=== PATIENT | female | born 1940 | race Caucasian/White ===

== ENCOUNTER 2016-08-24 17:05 | Inpatient (IN) | payer MEDICARE, OTHER ==
[2016-08-24] MEDS ORDERED: VANCOMYCIN INJ 1.5 GM in SODIUM CHLORIDE 0.9% 500 ML IV STA (19:41)
[2016-08-24] MEDS ORDERED: AMPICILLIN/SULBACTAM 3 GM in SODIUM CHLORIDE 0.9% MINIBAG 100 ML IV STA ×2 (19:41→20:07)
--- NOTE | 2016-08-24 19:44 | ED Physician Documentation ---
PD HPI LOWER EXT INJURY - Stated complaint Stated Complaint: RT FOOT PAIN - Chief complaint Chief Complaint: Ext Problem - History obtained from History obtained from: Patient - History of Present Illness PD HPI LOW EXT INJURY LOCATION: Other (She has orally controlled diabetes, was seen by her physician on Thursday for spreading foot infection which despite clindamycin has developed pain from the foot up to the groin on the right but with no fevers.) Review of Systems Ten Systems: 10 systems reviewed and negative Constitutional: denies: Fever, Chills Nose: reports: Reviewed and negative GI: reports: Reviewed and negative : reports: Reviewed and negative PD PAST MEDICAL HISTORY - Past Medical History Past Medical History: Yes Cardiovascular: Hypertension, High cholesterol Endocrine/Autoimmune: Type 2 diabetes - Past Surgical History Past Surgical History: Yes - Present Medications Home Medications: Ambulatory Orders Medication Instructions Recorded Confirmed Clindamycin [Cleocin] 300 mg PO DAILY 08/24/16 08/24/16 Cyclobenzaprine [Flexeril] 5 mg PO DAILY 08/24/16 08/24/16 Hydrochlorothiazide 25 mg PO DAILY 08/24/16 08/24/16 Lisinopril 20 mg PO DAILY 08/24/16 08/24/16 Omeprazole 20 mg PO DAILY 08/24/16 08/24/16 Simvastatin 40 mg PO DAILY 08/24/16 08/24/16 metFORMIN [Glucophage] 500 mg PO DAILY 08/24/16 08/24/16 oxyCODONE [Roxicodone] 5 mg PO DAILY 08/24/16 08/24/16 - Allergies Allergies/Adverse Reactions: Allergies Allergy/AdvReac Type Severity Reaction Status Date / Time No Known Drug Allergies Allergy Verified 08/24/16 17:13 - Social History Does the pt smoke?: No Smoking Status: Never smoker Does the pt drink ETOH?: No Does the pt have substance abuse?: No - Family History Family history: reports: Non contributory PD ED PE NORMAL - Vitals Vital signs reviewed: Yes - General General: Alert and oriented X 3, No acute distress - HEENT HEENT: PERRL, EOMI - Neck Neck: Supple, no meningeal sign, No bony TTP - Cardiac Cardiac: RRR, No murmur - Respiratory Respiratory: No respiratory distress, Clear bilaterally - Abdomen Abdomen: Normal bowel sounds, Soft, Non tender - Back Back: No CVA TTP, No spinal TTP - Extremities Extremities: Other (The top of the right foot is quite tender and red with some developing but not yet fully formed vesicles and she has tenderness up the calf and the medial side of the thigh.) - Neuro Neuro: Alert and oriented X 3, Normal speech - Psych Psych: Normal mood, Normal affect Results - Vitals Vitals: Vital Signs - 24 hr 08/24/16 08/24/16 17:10 19:05 Temperature 35.8 C L Heart Rate 92 87 Respiratory 18 12 Rate Blood Pressure 133/81 H 152/67 H O2 Saturation 97 98 Oxygen O2 Source Room air PD MEDICAL DECISION MAKING - ED course ED course: 75-year-old woman with rapidly progressive cellulitis that has failed outpatient treatment. Call to the hospitalist for admission at 7:43 PM. She declined pain medications on initial evaluation. Departure - Departure Disposition: 66 [facility] DC/Xfer Clinical Impression: Cellulitis Qualifiers: Site of cellulitis: extremity Site of cellulitis of extremity: lower extremity Laterality: right Qualified Code(s): L03.115 - Cellulitis of right lower limb Diabetes Qualifiers: Diabetes mellitus type: type 2 Diabetes mellitus complication status: without complication Diabetes mellitus long-term insulin use: without equipment operator intermodal yard use Qualified Code(s): E11.9 - Type 2 diabetes mellitus without complications Condition: Stable
[2016-08-24] MEDS ORDERED: SODIUM CHLORIDE 0.9% MINIBAG 100 ML IV ONE (19:50)
[2016-08-24 19:52] LABS: BASOPHILS % (AUTO) 0.4 %; HCT - HEMATOCRIT 40.3 % (37.0-47.0); HGB - HEMOGLOBIN 13.5 g/dL (12.0-16.0); LYMPHOCYTES # (AUTO) 1.5 10^3/uL (1.5-3.5); LYMPHOCYTES % (AUTO) 21.6 %; MEAN CORPUSCULAR HEMOGLOBIN 28.3 pg (27.0-31.0); MEAN CORPUSCULAR HGB CONC 33.5 g/dL (32.0-36.0); MEAN CORPUSCULAR VOLUME 84.5 fL (81.0-99.0); MEAN PLATELET VOLUME 9.2 fL (7.9-10.8); MONOCYTES # (AUTO) 0.8 10^3/uL (0.0-1.0); MONOCYTES % (AUTO) 11.4 %; NEUTROPHILS # (AUTO) 4.6 10^3/uL (1.5-6.6); NEUTROPHILS % (AUTO) 66.6 %; RED BLOOD COUNT 4.76 10^6/uL (4.20-5.40); RED CELL DISTRIBUTION WIDTH 14.2 % (12.0-15.0); UNCORRECTED WHITE BLOOD COUNT 6.9 x10^3/uL; WHITE BLOOD COUNT 6.9 x10^3/uL (4.8-10.8)
[2016-08-24] MEDS ORDERED: ONDANSETRON 4 MG/2 ML VIAL IVP PRN (20:00)
[2016-08-24] MEDS ORDERED: ONDANSETRON ODT 4 MG TABLET TL PRN (20:00)
[2016-08-24] MEDS ORDERED: ACETAMINOPHEN 325 MG TABLET PO PRN (20:00)
[2016-08-24] MEDS ORDERED: HYDROcod/ACETAM 5/325 MG TABLET PO PRN (20:00)
[2016-08-24] MEDS ORDERED: PANTOPRAZOLE 40 MG TABLET PO STA (20:04)
[2016-08-24 20:07] LABS: BILIRUBIN,TOTAL 0.7 mg/dL (0.2-1.0); CALCIUM 9.6 mg/dL (8.5-10.3); CREATININE 0.9 mg/dL (0.4-1.0); POTASSIUM 3.8 mmol/L (3.5-5.0)
[2016-08-24] MEDS ORDERED: VANCOMYCIN 1 GM VIAL ONE (20:12)
[2016-08-24 20:52] LABS: HEMOGLOBIN A1C 0.62 g/dL
[2016-08-24] MEDS: INSULIN ASPART 300 UNIT/3 ML PEN SUBQ SCH (21:47)
--- NOTE | 2016-08-24 21:47 | HISTORY & PHYSICAL EXAMINATION ---
Chief Complaint - Chief Complaint Chief Complaint: Right foot pain History of Present Illness - Admitted From Admitted From:: Emergency Department - History Obtained From Records Reviewed: ED History obtained from: Patient and Sister - History of Present Illness HPI Comment/Other: History and Physical completed at 2044 from the Emergency Department. 75 year-old white female with PMH diabetes and hypertension who woke up Thursday morning (08/22/16) with blistering, redness, swelling, and pain to her right foot. She went to her PCP that afternoon and was started on oral Clindamycin. She reports improvement in the blistering and swelling to her dorsal foot yet noticed a red streak extending proximally along the medial calf that started today. There is pain and tenderness up to her medial groin. She denies fevers, chills, or injury. She does walk around barefoot frequently and participates in water physical therapy 4 times a week. In the Emergency Department she is administered 3 gm Unasyn and 2 gm Vancomycin intravenously. Review of Systems - Constitutional Constitutional: reports: Poor appetite. denies: Fatigue, Fever, Chills, Weakness, Night sweats - Eyes Eyes: denies: Blurred vision, Spots in vision, Vision loss - Ears, Nose & Throat Ears, Nose & Throat: reports: Dentures (upper and lower, with patient.). denies : Hearing loss, Sore throat, Mouth lesions - Cardiovascular Cariovascular: denies: Irregular heart rate, Palpitations, Chest pain, Lightheadedness - Respiratory Respiratory: denies: Cough, Wheezing - Gastrointestinal Gastrointestinal: reports: Diarrhea (Loose stools Thursday.), Bile emesis ( Emesis x 1 on Thursday.). denies: Abdominal pain, Abdominal distention, Black stools, Bloody stools - Genitourinary Genitourinary: reports: Incontinence (Dribbing, wears incontinence pad at night. ). denies: Dysuria, Frequency - Musculoskeletal Musculoskeletal: reports: Back pain (Chronic back pain x 10 years.). denies: Joint pain - Integumentary Integumentary: denies: Rash - Neurological Neurological: denies: General weakness, Headache, Dizziness, Memory problems - Psychiatric Psychiatric: reports: Depression (Occasional depression that lasts 1 hour, resolves.). denies: Anxiety - Endocrine Endocrine: denies: Polyuria, Polydypsia - Hematologic/Lymphatic Hematologic/Lymphatic: denies: Bruising, Blood clots - All Other Systems All Other Systems: reports: Reviewed and negative History - Past Medical History Cardiovascular: reports: Hypertension, High cholesterol Respiratory: reports: None Neuro: reports: None Endocrine/Autoimmune: reports: Type 2 diabetes (No insulin therapy.) GI: reports: GERD RADIOLOGY TRANSCRIPTIONIST: reports: Other (, menopause age 51) : reports: Incontinence (dribbling.) HEENT: reports: None Psych: reports: None Musculoskeletal: reports: Chronic back pain (Several bulging discs and spinal stenosis.) Derm: reports: None MRSA Hx?: No - Past Surgical History General: reports: Bowel surgery ("possible bowel obstruction") HEENT: reports: Other ("some sort of throat surgery. My food wouldn't go down.") - Family & Social History Family History: Mother: (age 78; polio), CAD, OR (Grandmother, PE), Sister: Alive and Well, , Diabetes, Type 2, Brother: Diabetes, Type 2, Other family: OR Family History Comment/Other: Patient does not know her father or his medical history. Living arrangement: At home Living Situation: Alone Social History Notes: Patient retired after 30 years of working for [employer]) in [place]. She has lived alone in her house in [place] for the past 15 years since her . She was 4 children and 10 grandchildren who live in [facility]. Her sister, Candi Zarate (at the bedside) lives in [place]. She uses a walker to assist with mobility and reports being unable to clean her house although she has friends who help. She participates in water physical therapy 4 times a week [facility] [place]. She enjoys playing cards and going to the [employer] via the [employer]. - Substance History Use: Uses substance without health or social issues: Alcohol (One drink/month.) Abuse: Recurrent use of substance despite neg consequences: NONE Dependence: Experiences withdrawal or developed tolerances: NONE - POLST Patient has POLST: No Meds/Allgy - Home Medications Home Medications: Ambulatory Orders Medication Instructions Recorded Confirmed Clindamycin [Cleocin] 300 mg PO Q8H 08/24/16 08/25/16 Cyclobenzaprine [Flexeril] 5 mg PO TID PRN 08/24/16 08/25/16 Hydrochlorothiazide 25 mg PO DAILY 08/24/16 08/24/16 Lisinopril 20 mg PO DAILY 08/24/16 08/24/16 Omeprazole 20 mg PO DAILY 08/24/16 08/24/16 Simvastatin 40 mg PO DAILY 08/24/16 08/24/16 metFORMIN [Glucophage] 500 mg PO BID 08/24/16 08/25/16 oxyCODONE [Roxicodone] 5 - 10 mg PO Q4HR PRN 08/24/16 08/25/16 - Allergies Allergies/Adverse Reactions: Allergies Allergy/AdvReac Type Severity Reaction Status Date / Time No Known Drug Allergies Allergy Verified 08/24/16 17:13 Exam - Vital Signs Reviewed Vital Signs: Yes Vital Signs: Vital Signs x48h Temp Pulse Resp BP Pulse Ox 08/24/16 21:29 36.7 C 83 20 142/76 H 97 - Physical Exam General Appearance: positive: No acute distress (Resting on stretcher in ED. She has a difficult time maneuvering/sitting up on the stretcher due to her chronic back pain.) Eyes Bilateral: positive: Normal inspection, PERRL, EOMI ENT: positive: ENT inspection nml, Pharynx nml, No signs of dehydration Neck: positive: Nml inspection, No JVD, Trachea midline Respiratory: positive: Chest non-tender, No respiratory distress, Breath sounds nml Cardiovascular: positive: Regular rate & rhythm, No murmur, No gallop Peripheral Pulses: positive: 2+ (Bilateral Radial and left pedal/tibial pulses.) , 1+ (Right pedal and tibial pulses.) Abdomen: positive: Non-tender, Nml bowel sounds, No distention Back: positive: Nml inspection Skin: positive: Warm, Dry, Other (Redness and non-pitting edema to dorsal right foot- multiple bullae (patient reports are improving). 1+ pitting edema to pretibial region. Region is tender to palpation. Red streak extending along the left medial calf to the knee. No redness appreciated above the knee yet patient reports tenderness along the medial thigh towards the groin. 1+ pedal and tibial pulse on right leg. Area outlined for close monitoring.) Neurologic/Psychiatric: positive: Oriented x3, CN's nml (2-12), Motor nml, Sensation nml, Mood/affect nml Conclusion/Plan - Problem List (1) Cellulitis Conclusion/Plan: Patient with cellulitis to right lower extremity (foot) with red streak extending along medial calf to her knee. Patient has failed outpatient Clindamycin therapy that was initiated August 22. There are no signs of systemic infection in the ED: aefebrile, vital signs stable and lactic acid is 1.3. Blood cultures were drawn prior to initiation of antibiotic therapy. Redness is outlined upon arriving on medical unit for continued monitoring purposes. * Empiric antibiotic treatment for diabetic related cellulitis: * Vancomycin 2,000 mg every 12 hours intravenously: pharmacy to manage and dose. * Unasyn 3 gm every 6 hours intravenously. * Monitor for blood culture growth. * Outline redness and monitor progression daily. * Keep right lower extremity elevated while in bed. * Vital signs every 8 hours. Qualifiers: Site of cellulitis: extremity Site of cellulitis of extremity: lower extremity Laterality: right Qualified Code(s): L03.115 - Cellulitis of right lower limb (2) Diabetes Conclusion/Plan: Patient monitors her diet and takes 500 mg Metformin twice daily to manage her diabetes. She does not know her normal blood sugar, last hgb A1c or last eye exam. * Hold Metformin while inpatient. * ACHS blood sugar monitoring. * ACHS 1-5 unit sliding scale Novolog insulin. * Hgb A1c: 5.9 * Level III carbohydrate controlled diet. * Contact PCP regarding appointment with opthamologist and workers compensation paralegal. Qualifiers: Diabetes mellitus type: type 2 Diabetes mellitus complication status: with skin complications Diabetes mellitus complication detail: with other skin complication Diabetes mellitus nursing home insulin use: without nursing home use Qualified Code(s): E11.628 - Type 2 diabetes mellitus with other skin complications (3) Hypertension Conclusion/Plan: Hypertension not at goal therapy upon admission. * Continue home medication regimen. * Vital signs every 8 hours. Qualifiers: Hypertension type: unspecified secondary hypertension Qualified Code(s): I15.9 - Secondary hypertension, unspecified; I15 - Secondary hypertension (4) Back pain Conclusion/Plan: Patient reports chronic lumbar back pain from spinal stenosis and 4-5 bulging discs. She takes 5 mg oxycodone 1-2 times daily and 5 mg cyclobenzaprine once daily as needed for the pain. She reports no changes to the pain. * Continue home medication regimen. Qualifiers: Back pain location: low back pain Chronicity: chronic Back pain laterality: unspecified Sciatica presence: without sciatica Qualified Code(s ): M54.5 - Low back pain; G89.29 - Other chronic pain - Lab Results Fish Bones: 08/24/16 19:30 08/24/16 19:30 Issues/Core Measures - Anticipated LOS Anticipated Stay Length: 2 or more midnights - DVT/VTE - Prophylaxis VTE/DVT Device ordered at admit?: Yes
[2016-08-24] MEDS ORDERED: PANTOPRAZOLE 40 MG TABLET ONE (21:53)
[2016-08-24] MEDS: SODIUM CHLORIDE FLUSH 0.9% 10 ML SYRINGE IVP SCH (21:54)
[2016-08-24] MEDS: SODIUM CHLORIDE FLUSH 0.9% 10 ML SYRINGE IVP PRN (22:47)
[2016-08-25] MEDS: AMPICILLIN/SULBACTAM 3 GM in SODIUM CHLORIDE 0.9% MINIBAG 100 ML IV SCH ×4 (01:42→20:49)
[2016-08-25] MEDS: SODIUM CHLORIDE FLUSH 0.9% 10 ML SYRINGE IVP SCH ×3 (05:23→20:50)
[2016-08-25] MEDS: ATORVASTATIN 10 MG TABLET PO SCH (08:29)
[2016-08-25] MEDS: ENOXAPARIN 40 MG/0.4 ML SYRINGE SUBQ SCH (08:30)
[2016-08-25] MEDS: LISINOPRIL 20 MG TABLET PO SCH (08:30)
[2016-08-25] MEDS: CYCLOBENZAPRINE 10 MG TABLET PO SCH (08:30)
[2016-08-25] MEDS: hydroCHLOROthiazide 25 MG TABLET PO SCH (08:30)
[2016-08-25] MEDS: POLYETHYLENE GLYCOL 3350 17 GM PACKET PO SCH (08:31)
[2016-08-25] MEDS: oxyCODONE 5 MG TABLET PO PRN ×3 (08:31→21:37)
[2016-08-25] MEDS: SODIUM CHLORIDE FLUSH 0.9% 10 ML SYRINGE IVP PRN (08:32)
[2016-08-25] MEDS: INSULIN ASPART 300 UNIT/3 ML PEN SUBQ SCH ×4 (08:33→20:49)
[2016-08-25] MEDS ORDERED: NON FORMULARY MED (Simvastatin [Simvastatin] 40 MG) PO SCH (09:00)
[2016-08-25] MEDS: PANTOPRAZOLE 40 MG TABLET PO SCH (14:12)
[2016-08-25] MEDS ORDERED: SODIUM CHLORIDE 0.9% 500 ML IV ONE (18:15)
[2016-08-25] MEDS ORDERED: VANCOMYCIN 1 GM VIAL ONE (18:15)
[2016-08-25] MEDS ORDERED: VANCOMYCIN 500 MG VIAL ONE (18:16)
[2016-08-25] MEDS: VANCOMYCIN INJ 1 GM, VANCOMYCIN INJ 500 MG in SODIUM CHLORIDE 0.9% 500 ML IV SCH (18:26)
--- NOTE | 2016-08-25 19:01 | PROVIDER PROGRESS NOTE ---
Assessment/Plan - Problem List (1) Cellulitis Qualifiers: Site of cellulitis: extremity Site of cellulitis of extremity: lower extremity Laterality: right Qualified Code(s): L03.115 - Cellulitis of right lower limb Assessment/Plan: Patient with cellulitis to right lower extremity (foot) with red streak extending along medial calf to her knee. Patient has failed outpatient Clindamycin therapy that was initiated August 22. There are no signs of systemic infection in the ED: aefebrile, vital signs stable and lactic acid is 1.3. Blood cultures were drawn prior to initiation of antibiotic therapy. Redness is outlined upon arriving on medical unit for continued monitoring purposes. * Empiric antibiotic treatment for diabetic related cellulitis: * Vancomycin 2,000 mg every 12 hours intravenously: pharmacy to manage and dose. * Unasyn 3 gm every 6 hours intravenously. * Monitor for blood culture growth. * Outline redness and monitor progression daily. * Keep right lower extremity elevated while in bed. * Vital signs every 8 hours * Patients foot looks unchanged today, no leukocytosis, no fever, will likely need a few more days of IV abx Qualifiers: Site of cellulitis: extremity Site of cellulitis of extremity: lower extremity Laterality: right Qualified Code(s): L03.115 - Cellulitis of right lower limb (2) Diabetes Conclusion/Plan: Patient monitors her diet and takes 500 mg Metformin twice daily to manage her diabetes. She does not know her normal blood sugar, last hgb A1c or last eye exam. * Hold Metformin while inpatient. * ACHS blood sugar monitoring. * ACHS 1-5 unit sliding scale Novolog insulin. * Hgb A1c: 5.9 * Level III carbohydrate controlled diet. * Contact PCP regarding appointment with opthamologist and quality control supervisor. * Stable Qualifiers: Diabetes mellitus type: type 2 Diabetes mellitus complication status: with skin complications Diabetes mellitus complication detail: with other skin complication Diabetes mellitus prison insulin use: without long term care social worker use Qualified Code(s): E11.628 - Type 2 diabetes mellitus with other skin complications (3) Hypertension Conclusion/Plan: Hypertension not at goal therapy upon admission. * Continue home medication regimen. * Vital signs every 8 hours. * Stable Qualifiers: Hypertension type: unspecified secondary hypertension Qualified Code(s): I15.9 - Secondary hypertension, unspecified; I15 - Secondary hypertension (4) Back pain Conclusion/Plan: Patient reports chronic lumbar back pain from spinal stenosis and 4-5 bulging discs. She takes 5 mg oxycodone 1-2 times daily and 5 mg cyclobenzaprine once daily as needed for the pain. She reports no changes to the pain. * Continue home medication regimen. * Stable Qualifiers: Back pain location: low back pain Chronicity: chronic Back pain laterality: unspecified Sciatica presence: without sciatica Qualified Code(s ): M54.5 - Low back pain; G89.29 - Other chronic pain - Current Meds Current Meds: Current Medications Generic Name Dose Route Start Last Admin Trade Name Freq PRN Reason Stop Dose Admin Atorvastatin Calcium 20 mg 08/25/16 09:00 08/25/16 08:29 Lipitor PO 20 mg DAILY ANNAMARIA Administration Cyclobenzaprine HCl 5 mg 08/25/16 09:00 08/25/16 08:30 Flexeril PO 5 mg DAILY ANNAMARIA Administration Enoxaparin Sodium 40 mg 08/25/16 09:00 08/25/16 08:30 Lovenox SUBQ 40 mg DAILY ANNAMARIA Administration Hydrochlorothiazide 25 mg 08/25/16 09:00 08/25/16 08:30 Hydrodiuril PO 25 mg DAILY ANNAMARIA Administration Vancomycin HCl 1 gm/ 500 mls @ 250 mls/hr 08/25/16 19:00 08/25/16 18:26 Vancomycin HCl 500 mg/ Sodium IV 250 mls/hr Chloride Q24H ANNAMARIA Administration Ampicillin Sodium/Sulbactam 100 mls @ 200 mls/hr 08/25/16 02:00 08/25/16 13:30 Sodium 3 gm/ Sodium Chloride IV 200 mls/hr Q6H ANNAMARIA Administration Insulin Aspart 1 - 5 unit 08/24/16 21:00 08/25/16 18:27 Novolog SUBQ Not Given 0800,1200,1700,2100 ANNAMARIA Protocol Lisinopril 20 mg 08/25/16 09:00 08/25/16 08:30 Zestril PO 20 mg DAILY ANNAMARIA Administration Oxycodone HCl 5 mg 08/24/16 21:00 08/25/16 14:25 Roxicodone PO 5 mg Q4HR PRN Administration PAIN Pantoprazole Sodium 40 mg 08/25/16 14:00 08/25/16 14:12 Protonix PO 40 mg QDAC ANNAMARIA Administration Polyethylene Glycol 17 gm 08/25/16 09:00 08/25/16 08:31 Miralax PO 17 gm DAILY ANNAMARIA Administration Sodium Chloride 10 ml 08/24/16 20:00 08/25/16 08:32 Normal Saline Flush 0.9% IVP 10 ml PRN PRN Administration NEEDED PER PROVIDER ORDERS Sodium Chloride 10 ml 08/24/16 22:00 08/25/16 13:30 Normal Saline Flush 0.9% IVP 10 ml Q8HR ANNAMARIA Administration - Lab Result Lab results reviewed: Yes Fish Bone Diagrams: 08/24/16 19:30 08/24/16 19:30 - Diagnostic Imaging Results Diagnostic Imaging Results: Final report reviewed - Additional Planning Condition/Complexity: Stable My Orders: My Active Orders 08/25/16 14:00 Pantoprazole [Protonix] 40 mg PO QDAC Plan Discussed with:: Patient Time Spent: 31-60 minutes Subjective - Subjective Patient Reports: Other (Continues to have swelling and erythema of the foot. She states she had no fevers or chills overnight. She states pain is controlled. She is concerned about getting her GERD medication.) Nursing Reports: No Complaints Objective Vital Signs: Vital Signs - 24 hr 08/24/16 08/25/16 08/25/16 21:29 00:16 10:18 Temperature 36.7 C 36.9 C 36.7 C Heart Rate [ 83 82 86 Brachial] Respiratory 20 20 20 Rate Blood Pressure 142/76 H [Left Brachial artery] Blood Pressure 133/78 H 123/85 H [Right Brachial artery] O2 Saturation 97 93 92 08/25/16 16:27 Temperature 36.8 C Heart Rate [ 75 Brachial] Respiratory 20 Rate Blood Pressure [Left Brachial artery] Blood Pressure 109/67 [Right Brachial artery] O2 Saturation 94 Oxygen O2 Source Room air I&O (Last 24 Hrs): Intake and Output Totals x24h 08/23/16 08/24/16 08/25/16 23:59 23:59 23:59 Intake Total 536 1615 Output Total 240 Balance 536 1375 General: Alert, Oriented x3, Cooperative, No acute distress, Other (Obese) HEENT: Atraumatic, PERRLA Neck: Supple, No JVD, No thyromegaly, +2 carotid pulse wo bruit, No LAD Lymphatic: no adenopathy Neuro: Alert, Non Focal, CN 2-12 Grossly Intact, Oriented Times 3 Cardiovascular: Regular rate, Normal S1, Normal S2, No murmurs Respiratory: Chest non-tender, No respiratory distress, Breath sounds nml Abdomen: Normal bowel sounds, Soft, No tenderness, No hepatospenomegaly Extremities: No clubbing, No cyanosis, Normal pulses Skin: No rashes, No breakdown Comments/Notes: Redness and non-pitting edema to dorsal right foot- multiple bullae (patient reports are improving). 1+ pitting edema to pretibial region. Region is tender to palpation. Red streak extending along the left medial calf to the knee. No redness appreciated above the knee yet patient reports tenderness along the medial thigh towards the groin. 1+ pedal and tibial pulse on right leg. Area outlined for close monitoring. - Results Results: Laboratory Results WBC 6.9 x10^3/uL (4.8-10.8) 08/24/16 19:30 RBC 4.76 10^6/uL (4.20-5.40) 08/24/16 19:30 Hgb 13.5 g/dL (12.0-16.0) 08/24/16 19:30 Hct 40.3 % (37.0-47.0) 08/24/16 19:30 MCV 84.5 fL (81.0-99.0) 08/24/16 19:30 MCH 28.3 pg (27.0-31.0) 08/24/16 19:30 MCHC 33.5 g/dL (32.0-36.0) 08/24/16 19:30 RDW 14.2 % (12.0-15.0) 08/24/16 19:30 Plt Count 192 10^3/uL (130-450) 08/24/16 19:30 MPV 9.2 fL (7.9-10.8) 08/24/16 19:30 Neut # 4.6 10^3/uL (1.5-6.6) 08/24/16 19:30 Lymph # 1.5 10^3/uL (1.5-3.5) 08/24/16 19:30 [place] # 0.8 10^3/uL (0.0-1.0) 08/24/16 19:30 Eos # 0.0 10^3/uL (0.0-0.7) 08/24/16 19:30 Baso # 0.0 10^3/uL (0.0-0.1) 08/24/16 19:30 Absolute Nucleated RBC 0.00 x10^3/uL 08/24/16 19:30 Nucleated RBCs 0.0 /100WBC 08/24/16 19:30 ESR 54 mm/Hr (0-30) H 08/24/16 19:30 Sodium 135 mmol/L (135-145) 08/24/16 19:30 Potassium 3.8 mmol/L (3.5-5.0) 08/24/16 19:30 Chloride 97 mmol/L (101-111) L 08/24/16 19:30 Carbon Dioxide 25 mmol/L (21-32) 08/24/16 19:30 Anion Gap 13.0 (6-13) 08/24/16 19:30 BUN 28 mg/dL (6-20) H 08/24/16 19:30 Creatinine 0.9 mg/dL (0.4-1.0) 08/24/16 19:30 Estimated GFR (MDRD) 61 (>89) L 08/24/16 19:30 Glucose 117 mg/dL (70-100) H 08/24/16 19:30 POC Whole Bld Glucose 107 mg/dL (70 - 100) H 08/25/16 16:45 Glycated Hemoglobin 5.9 % (4.6-6.2) 08/24/16 19:30 Estim Average Glucose 123 (70-100) H 08/24/16 19:30 Lactic Acid 1.3 mmol/L (0.5-2.2) 08/24/16 19:30 Calcium 9.6 mg/dL (8.5-10.3) 08/24/16 19:30 Total Bilirubin 0.7 mg/dL (0.2-1.0) 08/24/16 19:30 AST 57 IU/L (10-42) H 08/24/16 19:30 ALT 39 IU/L (10-60) 08/24/16 19:30 Alkaline Phosphatase 51 IU/L (42-121) 08/24/16 19:30 C-Reactive Protein 7.0 mg/dL (0-1.0) H 08/24/16 19:30 Total Protein 8.0 g/dL (6.7-8.2) 08/24/16 19:30 Albumin 4.0 g/dL (3.2-5.5) 08/24/16 19:30 Globulin 4.0 g/dL (2.1-4.2) 08/24/16 19:30 Albumin/Globulin Ratio 1.0 (1.0-2.2) 08/24/16 19:30 Lipase 31 U/L (22-51) 08/24/16 19:30
[2016-08-26] MEDS: SODIUM CHLORIDE FLUSH 0.9% 10 ML SYRINGE IVP PRN ×2 (01:52→21:31)
[2016-08-26] MEDS: AMPICILLIN/SULBACTAM 3 GM in SODIUM CHLORIDE 0.9% MINIBAG 100 ML IV SCH ×4 (01:52→21:30)
[2016-08-26] MEDS: SODIUM CHLORIDE FLUSH 0.9% 10 ML SYRINGE IVP SCH ×3 (02:56→19:01)
[2016-08-26] MEDS: PANTOPRAZOLE 40 MG TABLET PO SCH (05:57)
[2016-08-26] MEDS: INSULIN ASPART 300 UNIT/3 ML PEN SUBQ SCH ×4 (08:11→21:40)
[2016-08-26] MEDS: CYCLOBENZAPRINE 10 MG TABLET PO SCH (08:12)
[2016-08-26] MEDS: ENOXAPARIN 40 MG/0.4 ML SYRINGE SUBQ SCH (08:12)
[2016-08-26] MEDS: ATORVASTATIN 10 MG TABLET PO SCH (08:12)
[2016-08-26] MEDS: LISINOPRIL 20 MG TABLET PO SCH (08:13)
[2016-08-26] MEDS: POLYETHYLENE GLYCOL 3350 17 GM PACKET PO SCH (08:13)
[2016-08-26] MEDS: SENNA 8.6 MG TABLET PO SCH (08:13)
[2016-08-26] MEDS: hydroCHLOROthiazide 25 MG TABLET PO SCH (08:13)
[2016-08-26] MEDS: DOCUSATE SODIUM 250 MG CAPSULE PO SCH (08:14)
--- NOTE | 2016-08-26 18:03 | PROVIDER PROGRESS NOTE ---
Assessment/Plan - Problem List (1) Cellulitis Qualifiers: Site of cellulitis: extremity Site of cellulitis of extremity: lower extremity Laterality: right Qualified Code(s): L03.115 - Cellulitis of right lower limb (2) Diabetes Qualifiers: Diabetes mellitus type: type 2 Diabetes mellitus complication status: with skin complications Diabetes mellitus complication detail: with other skin complication Diabetes mellitus fdc insulin use: without termite treater use Qualified Code(s): E11.628 - Type 2 diabetes mellitus with other skin complications - Current Meds Current Meds: Current Medications Generic Name Dose Route Start Last Admin Trade Name Freq PRN Reason Stop Dose Admin Atorvastatin Calcium 20 mg 08/25/16 09:00 08/26/16 08:12 Lipitor PO 20 mg DAILY ANNAMARIA Administration Cyclobenzaprine HCl 5 mg 08/25/16 09:00 08/26/16 08:12 Flexeril PO 5 mg DAILY ANNAMARIA Administration Docusate Sodium 250 - 500 mg 08/26/16 09:00 08/26/16 08:14 Colace 250mg Capsule PO Not Given DAILY ANNAMARIA Enoxaparin Sodium 40 mg 08/25/16 09:00 08/26/16 08:12 Lovenox SUBQ 40 mg DAILY ANNAMARIA Administration Hydrochlorothiazide 25 mg 08/25/16 09:00 08/26/16 08:13 Hydrodiuril PO 25 mg DAILY ANNAMARIA Administration Vancomycin HCl 1 gm/ 500 mls @ 250 mls/hr 08/25/16 19:00 08/25/16 18:26 Vancomycin HCl 500 mg/ Sodium IV 250 mls/hr Chloride Q24H ANNAMARIA Administration Ampicillin Sodium/Sulbactam 100 mls @ 200 mls/hr 08/25/16 02:00 08/26/16 13:09 Sodium 3 gm/ Sodium Chloride IV 200 mls/hr Q6H ANNAMARIA Administration Insulin Aspart 1 - 5 unit 08/24/16 21:00 08/26/16 17:07 Novolog SUBQ Not Given 0800,1200,1700,2100 [facility] Protocol Lisinopril 20 mg 08/25/16 09:00 08/26/16 08:13 Zestril PO 20 mg DAILY ANNAMARIA Administration Oxycodone HCl 5 mg 08/24/16 21:00 08/25/16 21:37 Roxicodone PO 5 mg Q4HR PRN Administration PAIN Pantoprazole Sodium 40 mg 08/25/16 14:00 08/26/16 05:57 Protonix PO 40 mg QDAC ANNAMARIA Administration Polyethylene Glycol 17 gm 08/25/16 09:00 08/26/16 08:13 Miralax PO Not Given DAILY ANNAMARIA Senna 8.6 - 17.2 mg 08/26/16 09:00 08/26/16 08:13 Senokot PO Not Given DAILY ANNAMARIA Sodium Chloride 10 ml 08/24/16 20:00 08/26/16 01:52 Normal Saline Flush 0.9% IVP 10 ml PRN PRN Administration NEEDED PER PROVIDER ORDERS Sodium Chloride 10 ml 08/24/16 22:00 08/26/16 13:10 Normal Saline Flush 0.9% IVP 10 ml Q8HR ANNAMARIA Administration - Lab Result Fish Bone Diagrams: 08/24/16 19:30 08/24/16 19:30 Objective Vital Signs: Vital Signs - 24 hr 08/26/16 08/26/16 00:45 12:25 Temperature 36.6 C 36.6 C Heart Rate [ 72 76 Brachial] Respiratory 16 16 Rate Blood Pressure 114/68 [Left Brachial artery] Blood Pressure 116/74 [Right Brachial artery] O2 Saturation 97 94 Oxygen O2 Source Room air I&O (Last 24 Hrs): Intake and Output Totals x24h 08/24/16 08/25/16 08/26/16 23:59 23:59 23:59 Intake Total 536 2287 1157 Output Total 240 Balance 536 2047 1157 - Results Results: Laboratory Results WBC 6.9 x10^3/uL (4.8-10.8) 08/24/16 19:30 RBC 4.76 10^6/uL (4.20-5.40) 08/24/16 19:30 Hgb 13.5 g/dL (12.0-16.0) 08/24/16 19:30 Hct 40.3 % (37.0-47.0) 08/24/16 19:30 MCV 84.5 fL (81.0-99.0) 08/24/16 19:30 MCH 28.3 pg (27.0-31.0) 08/24/16 19:30 MCHC 33.5 g/dL (32.0-36.0) 08/24/16 19:30 RDW 14.2 % (12.0-15.0) 08/24/16 19:30 Plt Count 192 10^3/uL (130-450) 08/24/16 19:30 MPV 9.2 fL (7.9-10.8) 08/24/16 19:30 Neut # 4.6 10^3/uL (1.5-6.6) 08/24/16 19:30 Lymph # 1.5 10^3/uL (1.5-3.5) 08/24/16 19:30 [place] # 0.8 10^3/uL (0.0-1.0) 08/24/16 19:30 Eos # 0.0 10^3/uL (0.0-0.7) 08/24/16 19:30 Baso # 0.0 10^3/uL (0.0-0.1) 08/24/16 19:30 Absolute Nucleated RBC 0.00 x10^3/uL 08/24/16 19:30 Nucleated RBCs 0.0 /100WBC 08/24/16 19:30 ESR 54 mm/Hr (0-30) H 08/24/16 19:30 Sodium 135 mmol/L (135-145) 08/24/16 19:30 Potassium 3.8 mmol/L (3.5-5.0) 08/24/16 19:30 Chloride 97 mmol/L (101-111) L 08/24/16 19:30 Carbon Dioxide 25 mmol/L (21-32) 08/24/16 19:30 Anion Gap 13.0 (6-13) 08/24/16 19:30 BUN 28 mg/dL (6-20) H 08/24/16 19:30 Creatinine 0.9 mg/dL (0.4-1.0) 08/24/16 19:30 Estimated GFR (MDRD) 61 (>89) L 08/24/16 19:30 Glucose 117 mg/dL (70-100) H 08/24/16 19:30 POC Whole Bld Glucose 113 mg/dL (70 - 100) H 08/26/16 10:53 Glycated Hemoglobin 5.9 % (4.6-6.2) 08/24/16 19:30 Estim Average Glucose 123 (70-100) H 08/24/16 19:30 Lactic Acid 1.3 mmol/L (0.5-2.2) 08/24/16 19:30 Calcium 9.6 mg/dL (8.5-10.3) 08/24/16 19:30 Total Bilirubin 0.7 mg/dL (0.2-1.0) 08/24/16 19:30 AST 57 IU/L (10-42) H 08/24/16 19:30 ALT 39 IU/L (10-60) 08/24/16 19:30 Alkaline Phosphatase 51 IU/L (42-121) 08/24/16 19:30 C-Reactive Protein 7.0 mg/dL (0-1.0) H 08/24/16 19:30 Total Protein 8.0 g/dL (6.7-8.2) 08/24/16 19:30 Albumin 4.0 g/dL (3.2-5.5) 08/24/16 19:30 Globulin 4.0 g/dL (2.1-4.2) 08/24/16 19:30 Albumin/Globulin Ratio 1.0 (1.0-2.2) 08/24/16 19:30 Lipase 31 U/L (22-51) 08/24/16 19:30
[2016-08-26] MEDS: VANCOMYCIN INJ 1 GM, VANCOMYCIN INJ 500 MG in SODIUM CHLORIDE 0.9% 500 ML IV SCH (19:00)
[2016-08-26] MEDS: oxyCODONE 5 MG TABLET PO PRN (21:41)
[2016-08-27] MEDS: AMPICILLIN/SULBACTAM 3 GM in SODIUM CHLORIDE 0.9% MINIBAG 100 ML IV SCH ×2 (02:01→10:12)
[2016-08-27] MEDS: SODIUM CHLORIDE FLUSH 0.9% 10 ML SYRINGE IVP SCH (02:01)
--- NOTE | 2016-08-27 07:07 | Discharge Plan ---
Discharge Plan Disposition: Home, Self Care Condition: Good Prescriptions: Amox/Clav 875/125 [Augmentin] 1 each PO Q12H #20 tablet Sulfamethox/Trimeth 800/160 [Bactrim Ds 800/160] 1 each PO BID #14 tablet Diet: Diabetic Activity Restrictions: Activity as Tolerated Shower Restrictions: No Driving Restrictions: Yes (get clearance from PCP) Weight Bearing: Full Weight Instruction Topics: Sulfamethoxazole Trimethoprim SMX-TMP tablets, Amoxicillin Clavulanic Acid tablets, Cellulitis Dc Additional Instructions or Follow Up instructions: Rest with leg up above your heart 1 hour twice a day for at least 5 days. Take all your antibiotics. If you get diarrhea call your PCP and stop the pills. Drink at least a quart of water a day. Follow up with your PCP in a week. Call her for an appt. Thank you, Dr. Juan Yang Smoking: If you smoke, Please STOP! Call for help. Follow-up with: Alyson Jordan PA [Primary Care Provider] - 1 Week
--- NOTE | 2016-08-27 07:46 | DISCHARGE SUMMARY ---
DATE OF ADMISSION: 08/24/2016 DATE OF DISCHARGE: 08/27/2016 PRIMARY CARE PHYSICIAN: JACOB Mccloud ADMISSION DIAGNOSES 1. Cellulitis, right lower leg and foot. 2. Diabetes type 2. 3. Hypertension, uncontrolled. 4. Back pain, chronic, from spinal stenosis. DISCHARGE DIAGNOSES 1. Cellulitis, right lower extremity, with vast improvement. Transitioned to oral antibiotics. 2. Diabetes with improved control during hospitalization. 3. Hypertension with improved control. 4. Chronic back pain. SPECIAL PROCEDURES: None. CONSULTATIONS: None. HOSPITAL COURSE AND MANAGEMENT: Initial presentation, hospital emergency evaluation, and hospitalist plan is well-described in the history and physical, see copy of same. SUMMARY: The patient is a 75-year-old female with a past medical history of diabetes and hypertension, who woke up with blistering, redness and swelling of her right foot. PCP started her on clindamycin, she had improvement in the blistering on the foot but red streak went up the medial calf and increasing redness and blistering there. The patient is admitted to the hospital for cellulitis with failed outpatient therapy. The following day, the patient had some improvement and the day after that had vast improvement but the redness and blistering remained over the great toe, first metatarsal and second metatarsal. There was some redness on the lateral malleolus as well. The majority of the erythema and streaking had improved. The patient had no fevers during hospitalization. PHYSICAL EXAM ON DAY OF DISCHARGE VITAL SIGNS: 36.5, 66, 104/67, 18, 98% room air saturation. EYES: EOMs within normal limits. PERRLA. Nonicteric. CONSTITUTIONAL: Appears stated age, in no acute distress. MOUTH AND THROAT: Moist mucous membranes. No other pathology in mouth and pharynx. NECK: No lymphadenopathy. No thyromegaly. No JVD. CHEST WALL: Nontender and symmetric. HEART: Normal sinus rhythm. No murmurs, rubs, clicks. LUNGS: Clear. Good air movement. ABDOMEN: Thick abdominal wall, soft, nontender. EXTREMITIES: No cyanosis. Palpable pulses at posterior tibial bilaterally only. The patient's leg, as noted above, has the residual erythema, violaceous appearing, in patches over the top of the foot. NEURO: Cognitive intact. Cranial nerves intact. Motor intact. LABORATORY DATA: She had a white count of 6.9, hemoglobin and hematocrit 13 and 40, platelets 92, ESR 54. DISPOSITION: She is discharged home with Augmentin 875/125 b.i.d. x10 days given the rapidity of the progression of this infection and its location in a diabetic of the distal lower extremity. Patient also put on Septra b.i.d. x7 days to cover possible MRSA. Patient to continue her oxycodone 5-10 mg every 4 hours as needed for chronic back pain, metformin 500 mg b.i.d., cyclobenzaprine 5 mg 3 times a day, lisinopril 20 mg a day, hydrochlorothiazide 25 mg a day, simvastatin 40 mg a day, and omeprazole 20 mg a day. She is also to elevate her leg above the heart for the first 5 days at least an hour in the morning and evening. If she has diarrhea or other untoward symptoms, she is to contact her PCP or come back to the emergency department. DISCHARGE ISSUES 1. Resolution of the infection. 2. Control of her diabetes, which was much improved during the hospitalization. 3. Hypertension. Patient was discharged after consultation with nursing, case management and conference with family totaling 35 minutes. The patient was examined on day of discharge as noted above. JOB #: [id number] EXT JOB #:[id number] JOHANA
[2016-08-27 08:34] VITALS: BP 109/71
[2016-08-27] MEDS: ATORVASTATIN 10 MG TABLET PO SCH (10:10)
[2016-08-27] MEDS: PANTOPRAZOLE 40 MG TABLET PO SCH (10:10)
[2016-08-27] MEDS: LISINOPRIL 20 MG TABLET PO SCH (10:11)
[2016-08-27] MEDS: oxyCODONE 5 MG TABLET PO PRN (10:11)
[2016-08-27] MEDS: hydroCHLOROthiazide 25 MG TABLET PO SCH (10:11)
[2016-08-27] MEDS: CYCLOBENZAPRINE 10 MG TABLET PO SCH (10:11)
[2016-08-27] MEDS: INSULIN ASPART 300 UNIT/3 ML PEN SUBQ SCH (10:12)
[2016-08-27] MEDS: DOCUSATE SODIUM 250 MG CAPSULE PO SCH (10:12)
[2016-08-27] MEDS: SENNA 8.6 MG TABLET PO SCH (10:13)
[2016-08-27] MEDS: POLYETHYLENE GLYCOL 3350 17 GM PACKET PO SCH (10:13)
[2016-08-27] MEDS: ENOXAPARIN 40 MG/0.4 ML SYRINGE SUBQ SCH (10:13)
== END 2016-08-27 10:20 | disposition home or self-care (01) | DRG 638 ==
LOC: ED 17:05 → MS 20:42
PROVIDERS: ADMIT Specialist; ATTEND Internal Medicine
DX: E11.628 Type 2 diabetes mellitus with other skin complications (principal); E11.9 Type 2 diabetes mellitus without complications; L03.115 Cellulitis of right lower limb; E78.00 Pure hypercholesterolemia, unspecified; L03.031 Cellulitis of right toe; I10 Essential (primary) hypertension; G89.29 Other chronic pain; M51.9 Unspecified thoracic, thoracolumbar and lumbosacral intervertebral disc disorder; M48.06 Spinal stenosis, lumbar region; R32 Unspecified urinary incontinence; K21.9 Gastro-esophageal reflux disease without esophagitis; Z79.891 Long term (current) use of opiate analgesic; Z79.899 Other long term (current) drug therapy; Z79.84 Long term (current) use of oral hypoglycemic drugs
CPT/HCPCS: 36415; 80053; 83036; 83605; 83690; 85025; 85651; 86140; 87040; 96365; 96367; 99284

== ENCOUNTER 2016-09-27 12:37 | Emergency (ER) | payer MEDICARE, OTHER ==
[2016-09-27 12:46] VITALS: BP 153/58
[2016-09-27 13:01] LABS: BILIRUBIN,URINE NEGATIVE (NEGATIVE); PH,URINE 5.5 PH (5.0-7.5)
[2016-09-27 13:03] LABS: UA w/ MICROSCOPIC CHARGE YES
[2016-09-27 13:28] LABS: UR CULTURE IF IND INDICATED
--- NOTE | 2016-09-27 13:53 | ED Physician Documentation ---
PD HPI FEMALE - Stated complaint Stated Complaint: BLOOD IN URINE - Chief complaint Chief Complaint: General - History obtained from History obtained from: Patient - History of Present Illness Timing - onset: How many days ago (few) Timing - duration: Days (few) Timing - details: Gradual onset, Waxing and waning Associated symptoms: Dysuria, Urinary frequency, Hematuria. 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 My food wouldn't go down.") - Present Medications Home Medications: Ambulatory Orders Medication Instructions Recorded Confirmed Cyclobenzaprine [Flexeril] 5 mg PO TID PRN 08/24/16 09/27/16 Hydrochlorothiazide 25 mg PO DAILY 08/24/16 09/27/16 Lisinopril 20 mg PO DAILY 08/24/16 09/27/16 Omeprazole 20 mg PO DAILY 08/24/16 09/27/16 Simvastatin 40 mg PO DAILY 08/24/16 09/27/16 metFORMIN [Glucophage] 500 mg PO BID 08/24/16 09/27/16 oxyCODONE [Roxicodone] 5 - 10 mg PO Q4HR PRN 08/24/16 09/27/16 Sulfamethox/Trimeth 800/160 1 each PO BID #14 tablet 09/27/16 [Bactrim Ds 800/160] - Allergies Allergies/Adverse Reactions: Allergies Allergy/AdvReac Type Severity Reaction Status Date / Time No Known Drug Allergies Allergy Verified 09/27/16 13:55 - Social History Does the pt smoke?: No Smoking Status: Former smoker Does the pt drink ETOH?: No Does the pt have substance abuse?: No - POLST Patient has POLST: No PD ED PE NORMAL - Vitals Vital signs reviewed: Yes - General General: Alert and oriented X 3, No acute distress, Well developed/nourished - Abdomen Abdomen: Soft, Non tender - Back Back: No CVA TTP - Derm Derm: Normal color, Warm and dry Results - Vitals Vitals: Oxygen O2 Source Room air - Labs Labs: Microbiology 09/27/16 12:50 Urine Culture - Preliminary Urine,Random Laboratory Tests 09/27/16 12:50 Urine Color YELLOW Urine Clarity CLEAR Urine pH 5.5 Ur Specific [place] 1.025 Urine Protein NEGATIVE Urine Glucose (UA) NEGATIVE Urine Ketones NEGATIVE Urine Occult Blood SMALL H Urine Nitrite NEGATIVE Urine Bilirubin NEGATIVE Urine Urobilinogen 0.2 (NORMAL) Ur Leukocyte Esterase SMALL H Urine RBC 0-5 Urine WBC 6-10 H Ur Squamous Epith Cells FEW Squamous Urine Bacteria None Seen Ur Microscopic Review INDICATED Urine Culture Comments INDICATED PD MEDICAL DECISION MAKING - ED course Complexity details: reviewed results (UA reasonably positive in lieu of her symptoms, so will call it UTI. ), considered differential, d/w patient Departure - Departure Disposition: 01 Home, Self Care Clinical Impression: Hematuria UTI (urinary tract infection) Qualifiers: Urinary tract infection type: acute cystitis Hematuria presence: with hematuria Qualified Code(s): N30.01 - Acute cystitis with hematuria Condition: Stable Record reviewed to determine appropriate education?: Yes Instructions: ED UTI Cystitis Female Follow-Up: Alyson Jordan PA [Primary Care Provider] - Prescriptions: Sulfamethox/Trimeth 800/160 [Bactrim Ds 800/160] 1 each PO BID #14 tablet Comments: Drink lots of fluids. Bactrim twice daily for 7 days for likely bladder infection. Recheck if not improved over the next 2-3 days. Discharge Date/Time: 09/27/16 14:27
[2016-09-27] MEDS ORDERED: SULFAMETH/TRIMETH DS 800/160 MG TABLET PO STA (14:08)
[2016-09-27] MEDS ORDERED: SULFAMETH/TRIMETH DS 800/160 MG TABLET PO ONE (14:24)
== END 2016-09-27 14:27 | disposition home or self-care (01) ==
LOC: ED 12:37
DX: N30.01 Acute cystitis with hematuria (principal); E11.9 Type 2 diabetes mellitus without complications; I10 Essential (primary) hypertension; E78.00 Pure hypercholesterolemia, unspecified; Z87.891 Personal history of nicotine dependence
CPT/HCPCS: 81001; 87077; 87086; 87181; 99283; A9270; 81003

== ENCOUNTER 2017-12-07 12:22 | Emergency (ER) | payer MEDICARE, OTHER ==
[2017-12-07 12:40] VITALS: BP 133/80
--- NOTE | 2017-12-07 14:22 | ED Physician Documentation ---
PD HPI SKIN - Stated complaint Stated Complaint: R FOOT SWELLING/PX - Chief complaint Chief Complaint: Ext Problem - History obtained from History obtained from: Patient - History of Present Illness Timing - onset: How many days ago (2-3) Timing - duration: Days Timing - details: Gradual onset, Still present Location: RLE (side of second toe, with small pustule blister.) Quality / character: Painful, Discolored (red) Review of Systems Constitutional: reports: Myalgias (just in right foot). 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 My food wouldn't go down.") - Present Medications Home Medications: Ambulatory Orders Medication Instructions Recorded Confirmed Cyclobenzaprine [Flexeril] 5 mg PO TID PRN 08/24/16 09/27/16 Lisinopril 20 mg PO DAILY 08/24/16 09/27/16 Omeprazole 20 mg PO DAILY 08/24/16 09/27/16 Simvastatin 40 mg PO DAILY 08/24/16 09/27/16 hydroCHLOROthiazide 25 mg PO DAILY 08/24/16 09/27/16 [Hydrochlorothiazide] metFORMIN [Glucophage] 500 mg PO BID 08/24/16 09/27/16 oxyCODONE [Roxicodone] 5 - 10 mg PO Q4HR PRN 08/24/16 09/27/16 Sulfamethox/Trimeth 800/160 1 each PO BID #14 tablet 09/27/16 [Bactrim Ds 800/160] Doxycycline Monohydrate 100 mg PO BID #14 tablet 12/07/17 Mupirocin 1 applic TP TID #15 oint...g. 12/07/17 - Allergies Allergies/Adverse Reactions: Allergies Allergy/AdvReac Type Severity Reaction Status Date / Time No Known Drug Allergies Allergy Verified 12/07/17 12:36 - Social History Does the pt smoke?: No Smoking Status: Former smoker Does the pt drink ETOH?: No Does the pt have substance abuse?: No - Immunizations Immunizations are current?: Yes - POLST Patient has POLST: No PD ED PE NORMAL - Vitals Vital signs reviewed: Yes - General General: Alert and oriented X 3, No acute distress, Well developed/nourished - Derm Derm: Normal color, Warm and dry - Extremities Extremities: No calf tenderness / cord, Other (side of 2nd toe with pustule about 4-5 mm, with pus out after nicking with scalpel tip. Redness and swelling side of toe extending to dorsum distal foot. ) - Neuro Neuro: No motor deficit, No sensory deficit Results - Vitals Vitals: Oxygen O2 Source Room air - Labs Labs: Microbiology 12/07/17 14:41 Wound Culture - Preliminary Toe - Right Third PD MEDICAL DECISION MAKING - ED course Complexity details: considered differential (superficial abscess of side of toe with cellulitic redness proximal to dorsum distal foot. Nicked with scalpel tip to get out drop of pus for culture. ), d/w patient Departure - Departure Disposition: 01 Home, Self Care Clinical Impression: Abscess of toe of right foot Condition: Stable Record reviewed to determine appropriate education?: Yes Instructions: ED Abscess IandD Follow-Up: Alyson Jordan PA [Primary Care Provider] - Prescriptions: Doxycycline Monohydrate 100 mg PO BID #14 tablet Mupirocin 1 applic TP TID #15 oint...g. Comments: Soak the toe in warm water 2-3 times a day and apply antibiotic ointment such as mupirocin or bacitracin. Use oral antibiotic doxycycline twice daily for a week. The infection appearance should improve over the next couple of days. The wound itself should heal up over a week or so. Recheck if it is not in that time course. Discharge Date/Time: 12/07/17 15:26
[2017-12-07] MEDS ORDERED: DOXYCYCLINE 100 MG TABLET PO STA (14:49)
[2017-12-07] MEDS ORDERED: MUPIROCIN 2% OINT 1 GM TOP STA (14:49)
== END 2017-12-07 15:26 | disposition home or self-care (01) ==
LOC: ED 12:22
DX: L02.611 Cutaneous abscess of right foot (principal); I10 Essential (primary) hypertension; E11.9 Type 2 diabetes mellitus without complications; Z79.4 Long term (current) use of insulin; E78.00 Pure hypercholesterolemia, unspecified; Z87.891 Personal history of nicotine dependence
CPT/HCPCS: 87070; 87205; 99283; A9270

== ENCOUNTER 2018-04-07 15:24 | Outpatient (CLI) | payer MEDICARE, OTHER ==
--- NOTE | 2018-04-08 08:22 | Mammography Report ---
Reason: Annual Screening Procedure Date: 04/07/2018 Accession Number: [id number] / [id number] Procedure: CARLOS EDUARDO - Screening Mammo Dig Bilat CPT Code: FULL RESULT: EXAM: Screening Mammo Dig Bilat DATE: 04/07/2018 3:51 PM CLINICAL HISTORY: Screening encounter. Reported 25 year history of hormone therapy. TECHNIQUE: Bilateral CC and MLO views were obtained. COMPARISON: 01/30/2014 through 05/13/2011. FINDINGS: The breasts demonstrate heterogeneously dense fibroglandular parenchyma bilaterally. Examination is somewhat limited by kyphosis and standing stability. Best possible images were obtained. There are coarse typically benign bilateral calcifications. No suspicious masses, clustered microcalcifications, or regions of architectural distortion are identified. IMPRESSION: Benign findings RECOMMENDATION: Routine annual screening unless otherwise clinically indicated. BIRADS CATEGORY 2: Benign findings STANDARD QUALIFYING STATEMENTS: 1. This examination was reviewed without the aid of Computer-Aided Detection (CAD). 2. A negative or benign imaging report should not delay biopsy if clinically suspicious findings are present. Consider surgical consultation if warrented. More than 5% of cancers are not identified by imaging. 3. Dense breasts may obscure an underlying neoplasm.
== END 2018-04-07 15:25 | disposition home or self-care (01) ==
LOC: DI 15:24
PROVIDERS: ATTEND Physician Assistant
DX: Z12.31 Encounter for screening mammogram for malignant neoplasm of breast (principal)
CPT/HCPCS: 77067

== ENCOUNTER 2021-07-23 10:37 | Outpatient (CLI) | payer MEDICARE, OTHER ==
--- NOTE | 2021-07-23 11:53 | XRAY Report ---
PROCEDURE: Hip w/Pelvis 2-3V LT INDICATIONS: PAIN IN LEFT HIP JOINT TECHNIQUE: AP pelvis with lateral view(s) of the left hip(s). COMPARISON: None. FINDINGS: Bones: No fractures or dislocations. Pelvic ring appears intact. No suspicious bony lesions. Mode rate degenerative arthritis of the left hip. Moderate to severe degenerative arthritis of the right h ip. Soft tissues: The visualized bowel gas pattern is normal. No suspicious soft tissue calcifications. Incidental note made of calcified uterine fibroid. IMPRESSION: Bilateral hip degenerative change, right greater than left. No evidence acute bony abnor mality of the pelvis and right hip. If clinical suspicion and/or symptoms persist, further assessment with repeat plain films or advanced imaging (e.g., CT, MRI, or bone scan) may be helpful for further assessment. Reviewed by: Lam Sosa MD on 07/23/2021 11:52 AM PDT Approved by: Lam Sosa MD on 07/23/2021 11:52 AM PDT Station ID: [id number]
== END 2021-07-23 10:38 | disposition home or self-care (01) ==
LOC: DI.S 10:37
PROVIDERS: ATTEND Nurse Practitioner Family
DX: M16.0 Bilateral primary osteoarthritis of hip (principal); I10 Essential (primary) hypertension; E78.5 Hyperlipidemia, unspecified; E11.9 Type 2 diabetes mellitus without complications
CPT/HCPCS: 36415; 80053; 80061; 82043; 82570; 83036; 83721; 84443; 85025

== ENCOUNTER 2021-07-23 10:44 | Outpatient (CLI) | payer MEDICARE, OTHER ==
[2021-07-23 14:15] LABS: BASOPHILS % (AUTO) 0.5 %; EOSINOPHILS % (AUTO) 0.2 %; HCT - HEMATOCRIT 34.7 % (37.0-47.0); HGB - HEMOGLOBIN 11.5 g/dL (12.0-16.0); LYMPHOCYTES # (AUTO) 1.4 10^3/uL (1.5-3.5); LYMPHOCYTES % (AUTO) 32.2 %; MEAN CORPUSCULAR HEMOGLOBIN 29.4 pg (27.0-31.0); MEAN CORPUSCULAR HGB CONC 33.1 g/dL (32.0-36.0); MEAN CORPUSCULAR VOLUME 88.7 fL (81.0-99.0); MEAN PLATELET VOLUME 11.6 fL (7.9-10.8); MONOCYTES # (AUTO) 0.4 10^3/uL (0.0-1.0); MONOCYTES % (AUTO) 8.5 %; NEUTROPHILS # (AUTO) 2.5 10^3/uL (1.5-6.6); NEUTROPHILS % (AUTO) 58.1 %; PLT - PLATELET COUNT 162 10^3/uL (130-450); RED BLOOD COUNT 3.91 10^6/uL (4.20-5.40); RED CELL DISTRIBUTION WIDTH 13.4 % (12.0-15.0); WHITE BLOOD COUNT 4.3 x10^3/uL (4.8-10.8)
[2021-07-23 14:35] LABS: CREATININE,URINE 107.6 mg/dL; MICROALBUM/CREATININE RATIO,UR 3.7 ug/mg (<30.0); MICROALBUMIN,URINE 0.4 mg/dL (0-300.0)
[2021-07-23 14:45] LABS: ESTIMATED AVERAGE GLUCOSE 126 mg/dL (70-100); THYROID STIMULATING HORMONE 1.91 uIU/mL (0.34-5.60)
[2021-07-23 14:47] LABS: ALBUMIN 3.8 g/dL (3.2-5.5); ALBUMIN/GLOBULIN RATIO 1.2 (1.0-2.2); ALKALINE PHOSPHATASE 38 IU/L (42-121); ALT ALANINE AMINOTRANSFERASE 20 IU/L (10-60); AST ASPARTATE AMINOTRANSFERASE 25 IU/L (10-42); BILIRUBIN,TOTAL 0.7 mg/dL (0.2-1.0); BUN - BLOOD UREA NITROGEN 19 mg/dL (6-20); CALCIUM 9.3 mg/dL (8.5-10.3); CARBON DIOXIDE - CO2 24 mmol/L (21-32); CHLORIDE 105 mmol/L (101-111); CHOL/HDL RATIO 3.1 (<4.4); CHOLESTEROL 154 mg/dL; CREATININE 0.8 mg/dL (0.4-1.0); GFR - MDRD 69 (>89); GLUCOSE 92 mg/dL (70-100); HDL CHOLESTEROL 49 mg/dL; LDL CHOLESTEROL,CALCULATED 79 mg/dL; LDL/HDL RATIO 1.6 (<4.4); POTASSIUM 4.1 mmol/L (3.5-5.0); SODIUM 141 mmol/L (135-145); TOTAL PROTEIN 7.1 g/dL (6.7-8.2); TRIGLYCERIDES 129 mg/dL; VLDL CHOLESTEROL 26 mg/dL
== END 2021-07-23 10:45 | disposition home or self-care (01) ==
LOC: LAB.S 10:44
PROVIDERS: ATTEND Nurse Practitioner Family
DX: I10 Essential (primary) hypertension (principal); E78.5 Hyperlipidemia, unspecified; E11.9 Type 2 diabetes mellitus without complications
CPT/HCPCS: 36415; 80053; 80061; 82043; 82570; 83036; 83721; 84443; 85025

== ENCOUNTER 2022-04-17 07:00 | Outpatient (CLI) | payer MEDICARE, OTHER ==
--- NOTE | 2022-04-17 16:31 | XRAY Report ---
PROCEDURE: Lumbar Spine 2 View INDICATIONS: LUMBAR SPINAL STENOSIS TECHNIQUE: 2 views of the lumbar spine were acquired. COMPARISON: None. FINDINGS: Bones: 5 [id number] vertebrae are present. Convex left scoliosis. Grade 2 anterolisthesis of L4 on L5. Grade 1 retrolisthesis of L2 on L3. Moderate to severe disc height loss at all levels. Marked facet arthrosis L4-S1. Soft tissues: Overlying bowel gas pattern is normal. No suspicious soft tissue calcifications. Edmar cified uterine fibroid. IMPRESSION: 1. Moderate to severe, multilevel degenerative disc disease. 2. Marked facet arthrosis at L4-S1. Reviewed by: Lit Akbar on 04/17/2022 4:29 PM PST Approved by: Lit Akbar on 04/17/2022 4:29 PM PST Station ID: [id number]
== END 2022-04-17 23:59 | disposition home or self-care (01) ==
LOC: DI.S 07:00
PROVIDERS: ATTEND Nurse Practitioner Family
DX: M48.061 Spinal stenosis, lumbar region without neurogenic claudication (principal); M47.816 Spondylosis without myelopathy or radiculopathy, lumbar region; M51.36 Other intervertebral disc degeneration, lumbar region

== ENCOUNTER 2023-05-23 08:00 | Outpatient (CLI) | payer MEDICARE, OTHER ==
--- NOTE | 2023-05-23 12:06 | XRAY Report ---
PROCEDURE: Knee 3V LT INDICATIONS: LEFT KNEE SPRAIN TECHNIQUE: 3 . views of the knee(s) were acquired. COMPARISON: None. FINDINGS: Bones: No fractures or dislocations. No suspicious bony lesions. Severe medial and moderate later al patellofemoral compartment degenerative change. Particular osteophytes are present. Mild chondroca lcinosis. Soft tissues: Mild knee joint effusion. No suspicious soft tissue calcifications or masses. IMPRESSION: Tricompartmental arthritic changes severe in the medial compartment. No visualized acute fracture or dislocation. However, occult injury cannot be excluded. Recommend eleazar rt interval imaging follow-up in 7-10 days as clinically indicated for additional evaluation. Reviewed by: Marcia Lima MD on 05/23/2023 12:04 PM PDT Approved by: Marcia Lima MD on 05/23/2023 12:04 PM PDT Station ID: [id number]
== END 2023-05-23 23:59 | disposition home or self-care (01) ==
LOC: DI.S 08:00
PROVIDERS: ATTEND Physician Assistant Medical
DX: M17.12 Unilateral primary osteoarthritis, left knee (principal)